=== PATIENT | male | born 1970 | race Native Hawaiian/Other Pacific Islander ===

== ENCOUNTER 2020-02-28 16:14 | Emergency (ER) | payer OTHER ==
[~2020-02-28] VITALS: Ht 182.9 cm; Wt 81.6 kg
[2020-02-28 16:23] VITALS: TEMP 97.8
[2020-02-28 18:15] VITALS: BP 122/78
== END 2020-02-28 18:15 | disposition home or self-care (01) ==
LOC: ED 16:14
DX: T18.128A Food in esophagus causing other injury, initial encounter (principal)
CPT/HCPCS: 96372; 99283; J1610